=== PATIENT | male | born 1960 | race Native Hawaiian/Other Pacific Islander ===

== ENCOUNTER 2020-12-22 08:53 | Outpatient (CLI) | payer OTHER ==
[2020-12-22 09:51] LABS: PARTIAL THROMBOPLASTIN TIME 25.5 SECONDS (24.5-33.6)
== END 2020-12-22 20:40 | disposition home or self-care (01) ==
LOC: CT 08:53 → RAD 09:00 → CT 20:40
PROVIDERS: ATTEND Neurological Surgery
DX: M54.12 Radiculopathy, cervical region (principal)
CPT/HCPCS: 36415; 85610; 85730; Q9963